=== PATIENT | female | born 1970 | race African-American/Black ===

== ENCOUNTER 2024-05-07 14:58 | Emergency (ER) | payer MEDICAID, OTHER ==
[~2024-05-07] VITALS: Ht 167.6 cm; Wt 90.0 kg
[2024-05-07 15:02] VITALS: TEMP 98; O2SAT 97
[2024-05-07] MEDS ORDERED: IPRATROPIUM/ALBUTEROL 0.5-3(2.5)MG/3ML NEB HHN ONE (15:45)
[2024-05-07 15:59] LABS: HEMATOCRIT. 39.7 % (36.0-48.0); HEMOGLOBIN. 12.5 g/dL (12.0-16.0); MEAN CORPUSCULAR HEMOGLOBIN 24.4 pg (28.0-32.0); MEAN CORPUSCULAR HGB CONC 31.5 g/dL (31.0-37.0); MEAN CORPUSCULAR VOLUME 77.4 fL (81.0-99.0); MEAN PLATELET VOLUME 8.8 fl (7.4-10.4); PLATELET 234 x1000/uL (130-400); RED BLOOD CELL COUNT 5.13 mill/uL (4.2-5.4); WHITE BLOOD COUNT 11.4 x1000/uL (4.5-11.0)
[2024-05-07 16:02] LABS: DIFFERENTIAL COMMENT 1
[2024-05-07 16:06] LABS: CHLORIDE 107 mEq/L (98-107); POTASSIUM 4.1 mEq/L (3.5-5.1); SODIUM 142 mEq/L (136-145)
[2024-05-07 16:07] LABS: CARBON DIOXIDE 28 mEq/L (21-32)
[2024-05-07 16:12] LABS: CREATININE 0.8 mg/dL (0.6-1.0); GLUCOSE 116 mg/dL (70-105); UREA NITROGEN BLOOD 13 mg/dL (9-23)
[2024-05-07 16:13] LABS: PROTHROMBIN TIME 11.1 sec (9.6-11.0)
[2024-05-07 16:15] LABS: TROPONIN I HIGH SENSITIVITY < 4 ng/L (3.0-34)
[2024-05-07] MEDS: PREDNISONE 20MG TABLET PO ONE (16:34)
[2024-05-07] MEDS: SODIUM CHLORIDE 0.9% 1,000 ML IV ONE (16:34)
[2024-05-07] MEDS: ASPIRIN 81MG TABLET PO ONE (16:34)
[2024-05-07 16:35] LABS: HYPOCHROMASIA 1+; MICROCYTOSIS 1+; PLATELET ESTIMATE NORMAL
[2024-05-07 19:01] LABS: TROPONIN I HIGH SENSITIVITY < 4 ng/L (3.0-34)
[2024-05-07] MEDS ORDERED: ALBU18HF2 IH (19:56)
[2024-05-07] MEDS ORDERED: P50 MT (19:56)
[2024-05-07 20:21] VITALS: BP 119/80; PULSE 114; RESP 18; O2SAT 100
== END 2024-05-07 20:42 | disposition home or self-care (01) ==
LOC: ER 14:58
DX: R07.89 Other chest pain (principal); J20.9 Acute bronchitis, unspecified; F20.9 Schizophrenia, unspecified
CPT/HCPCS: 80048; 83880; 85025; 85379; 85610; 84484; 36415; 71045; 93005; 96360; 99285; Z7610 ×2; J7512; J7030